=== PATIENT | male | born 1985 | race African-American/Black ===

== ENCOUNTER 2017-10-12 19:16 | Emergency (ER) | payer OTHER ==
--- NOTE | 2017-10-12 20:08 | ER Document Report ---
ED Medical Screen (RME) - General Chief Complaint: Chest Pain Stated Complaint: ABDOMINAL PAIN Time Seen by Provider: 10/12/17 20:07 TRAVEL OUTSIDE OF THE [place] IN LAST 30 DAYS: No - HPI Notes: 10/12/17 20:08 Right-sided chest pain ongoing for a few months worse last 3 days with increased shortness of breath. [facility] ultrasound CT scan abdomen all negative - Related Data Allergies/Adverse Reactions: No Known Allergies Allergy (Unverified 10/12/17 19:58) Home Medications: Current Home Medications No Home Medications 10/12/17 [History] Past Medical History - Social History Frequency of alcohol use: None Drug Abuse: None Renal/ Medical History: Denies: Hx Peritoneal Dialysis Review of Systems - Review of Systems Cardiovascular: Chest pain Physical Exam - Vital signs Vitals: Temp Pulse Resp BP Pulse Ox 98.6 F 86 18 124/75 98 10/12/17 19:21 10/12/17 19:21 10/12/17 19:21 10/12/17 19:21 10/12/17 19:21 - Respiratory Respiratory status: No respiratory distress Chest status: Tender - Tenderness to palpation the right side of the chest Course - Vital Signs Vital signs: Temp Pulse Resp BP Pulse Ox 98.6 F 86 18 124/75 98 10/12/17 19:21 10/12/17 19:21 10/12/17 19:21 10/12/17 19:21 10/12/17 19:21
--- NOTE | 2017-10-12 20:41 | ER Document Report ---
ED GI/ - General Chief Complaint: Chest Pain Stated Complaint: ABDOMINAL PAIN Time Seen by Provider: 10/12/17 20:07 Mode of Arrival: Ambulatory Information source: Patient Notes: 32 yo smoker, non drugs, ex etoh, non hperlipidemic, non htn, non dm, [facility] a [facility] for chest pain. Was dull intermittently 4- 5 times per day since November in center of chest until january when it moved to the right. Past 2 days is no tender, sore hard to breathe, sharp, stabbing pain. Worse with berething, shifting left to right when twists body. Stomach growls around same time. Never seen GI or had EGD. 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 No surgeries. FH: DM , HTN, stroke. TRAVEL OUTSIDE OF THE [place] IN LAST 30 DAYS: No - Related Data Allergies/Adverse Reactions: No Known Allergies Allergy (Unverified 10/12/17 19:58) Past Medical History - General Information source: Patient - Social History Smoking Status: Current Every Day Smoker Frequency of alcohol use: None Drug Abuse: None Occupation: heating and air Lives with: Family Family History: CVA, DM, Hypertension Patient has suicidal ideation: No Patient has homicidal ideation: No - Medical History Medical History: Negative Renal/ Medical History: Denies: Hx Peritoneal Dialysis Surgical Hx: Negative Review of Systems - Review of Systems Constitutional: No symptoms reported EENT: No symptoms reported Cardiovascular: See HPI Respiratory: No symptoms reported Gastrointestinal: No symptoms reported Genitourinary: No symptoms reported Male Genitourinary: No symptoms reported Musculoskeletal: No symptoms reported Skin: No symptoms reported Hematologic/Lymphatic: No symptoms reported Neurological/Psychological: No symptoms reported Physical Exam - Vital signs Vitals: Temp Pulse Resp BP Pulse Ox 98.6 F 86 18 124/75 98 10/12/17 19:21 10/12/17 19:21 10/12/17 19:21 10/12/17 19:21 10/12/17 19:21 Interpretation: Normal - General General appearance: Appears well, Alert In distress: None - HEENT Head: Normocephalic, Atraumatic Eyes: Normal Pupils: PERRL Tympanic membrane: Normal Mucous membranes: Normal Pharynx: Normal Neck: Supple. No: Lymphadenopathy - Respiratory Respiratory status: No respiratory distress Chest status: Tender - right medial lower steranl margin and 2 inches above, between cartilage is point tende, not red, not swollen Breath sounds: Normal Chest palpation: Normal - Cardiovascular Rhythm: Regular Heart sounds: Normal auscultation Murmur: No - Abdominal Inspection: Normal Distension: No distension Bowel sounds: Normal Tenderness: Nontender Organomegaly: No organomegaly - Back Back: Normal, Nontender - Extremities General upper extremity: Normal inspection, Nontender, Normal color, Normal ROM , Normal temperature General lower extremity: Normal inspection, Nontender, Normal color, Normal ROM , Normal temperature, Normal weight bearing. No: Sandro's sign - Neurological Neuro grossly intact: Yes Cognition: Normal Orientation: AAOx4 [place] Coma Scale Eye Opening: Spontaneous [place] Coma Scale Verbal: Oriented [place] Coma Scale Motor: Obeys Commands [place] Coma Scale Total: 15 Speech: Normal Motor strength normal: LUE, RUE, LLE, RLE Sensory: Normal - Psychological Associated symptoms: Normal affect, Normal mood - Skin Skin Temperature: Warm Skin Moisture: Dry Skin Color: Normal Skin irregularity: negative: Rash Course - Re-evaluation Re-evalutation: 10/12/17 22:[address] mtz, pt can be disposed home. EKG, NSR, d dime negative, cardiac enzymes negative, chest xray negative. Do not believe this is ACS, pulmonary embolism or aneurysm. The patient's chest wall is exquisitely and point tender to the lower right sternal margin and just above it. - Vital Signs Vital signs: Temp Pulse Resp BP Pulse Ox 98.6 F 86 14 112/76 99 10/12/17 19:21 10/12/17 19:21 10/12/17 22:35 10/12/17 22:36 10/12/17 22:36 - Laboratory Result Diagrams: 10/12/17 20:34 10/12/17 20:34 Laboratory results interpreted by me: 10/12/17 10/12/17 20:34 20:34 RDW 14.2 H Sodium 145.6 H Discharge - Discharge Clinical Impression: Right-sided chest pain, chest wall tenderness Condition: Good Disposition: HOME, SELF-CARE Instructions: Aspirin (Cardiac) ([facility]), Chest Wall Pain ([facility]), Chest Pain of Unclear Cause ([facility]), Family Physicians / Practices Additional Instructions: baby aspirin daily see family practice doctor, list given to you to er if increased pain or symptoms copy of all labs, imaging and ekg given to you Please complete the patient satisfaction survey if you get one, and return it.. If you do not receive a survey, then you can go to the [facility] website, [email or web address] and place your comments about your very good care. Thank you very much. It was a pleasure being your medical provider today. Prescriptions: Ibuprofen [Motrin 800 mg Tablet] 800 mg PO Q8HP PRN #30 tablet PRN Reason: Forms: Return to Work
[2017-10-12 20:47] LABS: ABSOLUTE BASOPHILS # (AUTO) 0.1 10^3/uL (0.0-0.2); ABSOLUTE EOSINOPHILS # (AUTO) 0.2 10^3/uL (0.0-0.6); ABSOLUTE LYMPHOCYTES (AUTO) 2.8 10^3/uL (0.5-4.7); ABSOLUTE MONOCYTES (AUTO) 0.9 10^3/uL (0.1-1.4); BASOPHILS % (AUTO) 0.6 % (0-2); EOSINOPHILS % (AUTO) 2.8 % (0-6); HEMATOCRIT 46.9 % (37.9-51.0); HEMOGLOBIN 15.9 g/dL (13.5-17.0); HGB HCT DIFFERENCE 0.8; LYMPHOCYTES % (AUTO) 31.2 % (13-45); MEAN CORPUSCULAR HEMOGLOBIN 29.9 pg (27.0-33.4); MEAN CORPUSCULAR HGB CONC 33.8 g/dL (32.0-36.0); MEAN CORPUSCULAR VOLUME 88 fl (80-97); MONOCYTES % (AUTO) 10.4 % (3-13); RED BLOOD COUNT 5.31 10^6/uL (4.35-5.55); RED CELL DISTRIBUTION WIDTH 14.2 % (11.5-14.0)
--- NOTE | 2017-10-12 20:51 | RADIOLOGY REPORT (SQ) ---
EXAM DESCRIPTION: CHEST PA/LAT COMPLETED DATE/TIME: 10/12/2017 8:44 pm REASON FOR STUDY: sob COMPARISON: None. EXAM PARAMETERS: NUMBER OF VIEWS: two views TECHNIQUE: Digital Frontal and Lateral radiographic views of the chest acquired. RADIATION DOSE: NA LIMITATIONS: none FINDINGS: LUNGS AND PLEURA: No opacities, masses or pneumothorax. No pleural effusion. MEDIASTINUM AND HILAR STRUCTURES: No masses or contour abnormalities. HEART AND VASCULAR STRUCTURES: Heart normal size. No evidence for failure. BONES: No acute findings. HARDWARE: None in the chest. OTHER: No other significant finding. IMPRESSION: NO SIGNIFICANT RADIOGRAPHIC FINDING IN THE CHEST. TECHNICAL DOCUMENTATION: JOB ID: [id number] [employer]- All Rights Reserved
[2017-10-12] MEDS ORDERED: ASPIRIN 81 MG TABLET, CHEWABLE PO ONE (21:03)
[2017-10-12 21:12] LABS: ALANINE AMINOTRANSFERASE 35 U/L (21-72); ALBUMIN 4.6 g/dL (3.5-5.0); ALKALINE PHOSPHATASE 49 U/L (38-126); ANION GAP 15 (5-19); ASPARTATE AMINO TRANSFERASE 17 U/L (17-59); BILIRUBIN,DIRECT 0.3 mg/dL (0.0-0.4); BILIRUBIN,TOTAL 0.6 mg/dL (0.2-1.3); BLOOD UREA NITROGEN 18 mg/dL (7-20); CALCIUM 9.5 mg/dL (8.4-10.2); CARBON DIOXIDE 25 mmol/L (22-30); CHLORIDE 106 mmol/L (98-107); CREATINE KINASE 164 U/L (55-170); CREATININE RESULT 1.22 mg/dL (0.52-1.25); GLUCOSE 91 mg/dL (75-110); POTASSIUM 4.5 mmol/L (3.6-5.0); SODIUM 145.6 mmol/L (137-145); TOTAL PROTEIN 6.8 g/dL (6.3-8.2)
[2017-10-12 22:40] VITALS: BP 112/76
--- NOTE | 2017-10-14 06:11 | EKG REPORT ---
SEVERITY:- BORDERLINE ECG - SINUS RHYTHM BORDERLINE R WAVE PROGRESSION, ANTERIOR LEADS : Confirmed by: Mabel Alfonso MD 14-Oct-2017 06:10:20
== END 2017-10-12 22:40 | disposition home or self-care (01) ==
LOC: ER 19:16
DX: R07.89 Other chest pain (principal); R10.9 Unspecified abdominal pain; E78.5 Hyperlipidemia, unspecified; E11.9 Type 2 diabetes mellitus without complications; F17.200 Nicotine dependence, unspecified, uncomplicated
CPT/HCPCS: 36415; 71020; 80053; 82550; 82553; 84484; 85025; 85379; 93005; 93010; 99285